=== PATIENT | male | born 1965 | race African-American/Black ===

== ENCOUNTER 2019-06-07 06:19 | Emergency (ER) | payer SELFPAY ==
[2019-06-07] MEDS ORDERED: NS 0.9% 1000 ML** 1,000 ML IV.FLUID IV ONE (06:33)
[2019-06-07] MEDS ORDERED: Acetaminophen TAB* 325 MG PO ONE (06:42)
--- NOTE | 2019-06-07 06:48 | ED ---
HPI Febrile Illness - HPI Summary HPI Summary: Pt. is a 54 y.o male who presents to the ER for fever x 3 days. Pt. notes low back pain and frontal headache. Pt. denies associated sxs CP, SOB, cough, neck pain, abd. pain, V/D, urinary sxs, rash, URI sxs. Past medical hx of HTN and renal insufficiency. Pt. notes he resides in [facility] and is in the area visiting friends. Pt. denies sick contacts or recent travel. Sxs are moderate in severity. No current modifying factors. - History of Current Complaint Chief Complaint: EDFever Time Seen by Provider: 06/07/19 06:30 Hx Obtained From: Patient Pain Intensity: 5 - Allergy/Home Medications Allergies/Adverse Reactions: Allergies Allergy/AdvReac Type Severity Reaction Status Date / Time No Known Allergies Allergy Verified 06/07/19 06:24 Home Medications: Home Medications Amlodipine Besylate [Norvasc] 10 mg PO DAILY 06/07/19 [History Confirmed ] Atorvastatin* [Lipitor*] 40 mg PO DAILY 06/07/19 [History Confirmed 06/07/19] Hydralazine HCl 50 mg PO TID 06/07/19 [History Confirmed 06/07/19] Ramipril CAP* [Altace CAP*] 10 mg PO BID 06/07/19 [History Confirmed 06/07/19] hydroCHLOROthiazide [Hydrochlorothiazide] 12.5 mg PO DAILY 06/07/19 [History Confirmed 06/07/19] PMH/Surg Hx/FS Hx/Imm Hx Previously Healthy: Yes Infectious Disease History: No Infectious Disease History: Denies: Traveled Outside the [place] in Last 30 Days - Family History Known Family History: Positive: Non-Contributory - Social History Occupation: Employed Full-time Lives: With Family Alcohol Use: None Substance Use Type: Reports: None Smoking Status (MU): Never Smoked Tobacco Review of Systems Positive: Fever, Chills Eyes: Negative ENT: Negative Cardiovascular: Negative Negative: Palpitations, Chest Pain Respiratory: Negative Negative: Shortness Of Breath, Cough Positive: Nausea. Negative: Abdominal Pain, Vomiting, Diarrhea Genitourinary: Negative Negative: dysuria Positive: Other - low back pain Skin: Negative Negative: Rash Positive: Headache. Negative: Weakness, Paresthesia, Numbness, Syncope, Slurred Speech All Other Systems Reviewed And Are Negative: Yes Physical Exam Triage Information Reviewed: Yes Vital Signs On Initial Exam: Initial Vitals Temp Pulse Resp BP Pulse Ox 102.2 F 110 18 177/107 94 06/07/19 06:22 06/07/19 06:22 06/07/19 06:22 06/07/19 06:22 06/07/19 06:22 Vital Signs Reviewed: Yes Appearance: Positive: Well-Nourished - Pt. lying in bed with eyes closed. Appears to feel unwell but nontoxic. Family present. Skin: Positive: Other - Hot to touch, dry.. Negative: Diaphoretic Head/Face: Positive: Normal Head/Face Inspection Eyes: Positive: Normal, EOMI, MALCOLM Neck: Positive: Supple, Nontender. Negative: Nuchal Rigidity Respiratory/Lung Sounds: Positive: Clear to Auscultation, Breath Sounds Present Cardiovascular: Positive: Normal, RRR Abdomen Description: Positive: Nontender, Soft Musculoskeletal: Positive: Normal, Strength/ROM Intact Neurological: Positive: Normal, Alert, Oriented to Person Place, Time, CN Intact II-III Psychiatric: Positive: Affect/Mood Appropriate Diagnostics - Vital Signs Vital Signs Temp Pulse Resp BP Pulse Ox 06/07/19 06:22 102.2 F 110 18 177/107 94 - Laboratory Result Diagrams: 06/07/19 07:06 06/07/19 07:06 Lab Statement: Any lab studies that have been ordered have been reviewed, and results considered in the medical decision making process. Course/Dx - Course Course Of Treatment: Pt. presenting with fever and low back pain. Temp 102.2F, HR 110bpm, O2 95% on RA. Suspect pt. will meet sepsis criteria so workup ordered. Pt. started on fluids and tylenol. CBC shows mild leukocytosis of 13. CMP shows mildly elevated cr and liver enzymes. ECG done at 0714 shows a sinus rhythm of 99bpm, normal axis, no ST elevation or depression. CXR read per radiology: IMPRESSION: #. Probable LEFT greater than RIGHT perihilar inflammatory infiltrates. Interval follow-up. after therapy warranted to assess for resolution. Temp and HR have improved. On re-exam pt. is resting comfortably. No signs of respiratory distress. Pt. given a dose of IV rocephin and zithromax. Pt. comfortably with DC home. Pt. notes he does not have insurance and is concerned about paying for rx. Will use urgent rx and place on doxycycline. Pt. notes he is returning home tomorrow. Advised to f.u with his PCP in 2-3 days. Increase fluids. Tylenol for pain and fever as directed. To return to ER if symptoms change or worsen. - Febrile Illness Differential Diagnoses: Abd. Infection, Abscess, Bacteremia, Cellulitis, Fever of Unknown Origin, Pneumonia, Pyelonephritis, Sepsis, Viremia - Diagnoses Provider Diagnoses: Pneumonia Discharge - Sign-Out/Discharge Documenting (check all that apply): Patient Departure Patient Received Moderate/Deep Sedation with Procedure: No - Discharge Plan Condition: Improved Disposition: HOME Prescriptions: DOXYcycline CAP(*) [DOXYcycline 100MG CAP(*)] 100 mg PO BID #20 cap Patient Education Materials: Pneumonia (ED) Forms: *Work Release Referrals: [facility] [Outside] Additional Instructions: Follow up with your PCP or the [facility] in 2-3 days Take antibiotic as directed Increase fluids and rest Tylenol for pain and fever as directed Return to ER if symptoms change or worsen - Billing Disposition and Condition Condition: IMPROVED Disposition: Home
[2019-06-07 07:21] LABS: ABS Basophils 0.1 10^3/ul (0-0.2); ABS Lymphocytes 1.6 10^3/ul (1.0-4.8); ABS Monocytes 0.7 10^3/ul (0-0.8); ABS Neutrophils 9.8 10^3/ul (1.5-7.7); Eosinophil % 0.1 %; Hematocrit 45 % (42-52); Hemoglobin 15.5 g/dL (14.0-18.0); Lymphocyte % 13.2 %; Mean Corpuscular HGB Conc 35 g/dL (31-36); Mean Corpuscular Hemoglobin 31 pg (27-31); Mean Corpuscular Volume 90 fL (80-94); Mean Platelet Volume 8.5 fL (7.4-10.4); Platelet Count 195 10^3/uL (150-450); Red Blood Count 4.98 10^6 /uL (4.18-5.48); Red Cell Distribution Width 14 % (10-15); White Blood Count 12.2 10^3/uL (3.5-10.8)
[2019-06-07] MEDS ORDERED: Azithromycin 500 mg/250 ml NS 500 MG/250 ML BAG IVPB ONE (07:28)
[2019-06-07] MEDS ORDERED: cefTRIAXone(*) 1 GM in NS 0.9% 50 ML* 50 ML IVPB ONE (07:28)
[2019-06-07 07:30] LABS: INR 1.11 (0.82-1.09)
[2019-06-07 07:37] LABS: Albumin 4.2 g/dL (3.2-5.2); Albumin/Globulin Ratio 1.1 (1-3); BUN/Creatinine Ratio 8.5 (8-20); C Reactive Protein 112.19 mg/L (<8.01); Calcium 9.4 mg/dL (8.6-10.3); EGFR African American 69.1 (>60); EGFR Non-African American 57.1 (>60); Globulin 3.9 g/dL (2-4); Potassium 3.5 mmol/L (3.5-5.0); Total Bilirubin 0.6 mg/dL (0.2-1.0); Total Protein 8.1 g/dL (6.4-8.9)
[2019-06-07 07:39] LABS: Troponin I 0.01 ng/mL (<0.04)
[2019-06-07 08:27] LABS: Urine Appearance Clear; Urine Bilirubin Negative (Negative); Urine Blood Negative (Negative); Urine Color Yellow; Urine Glucose Negative (Negative); Urine Ketones Negative (Negative); Urine Nitrite Negative (Negative); Urine Protein Negative (Negative); Urine Specific Gravity 1.006 (1.010-1.030); Urine Urobilinogen Negative (Negative)
[2019-06-07 09:43] VITALS: BP 147/88
== END 2019-06-07 10:00 | disposition home or self-care (01) ==
LOC: ED 06:19
DX: J18.9 Pneumonia, unspecified organism (principal); Z79.899 Other long term (current) drug therapy
CPT/HCPCS: 36415; 71046; 80053; 81003; 83605; 84484; 85025; 85610; 85730; 86140; 87040; 93005; 96365; 99283; A9270-GY; J0456; J0696